=== PATIENT | male | born 1955 | race Caucasian/White ===

== ENCOUNTER 2018-07-16 05:34 | Observation (INO) | payer BC ==
[2018-07-16] MEDS ORDERED: Sodium Chloride 0.9% 2.5 ML Syringe FLUSH PRN (05:36)
[2018-07-16] MEDS ORDERED: Sodium Chloride 0.9% 10 ML Syringe FLUSH PRN (05:36)
[2018-07-16] MEDS ORDERED: Pantoprazole 40 MG Vial IVPUSH ONE (05:39)
[2018-07-16] MEDS ORDERED: Ondansetron 4 MG/2 ML SDV IVPUSH ONE (05:39)
[2018-07-16] MEDS ORDERED: Sodium Chloride 0.9% 1,000 ML IV ONE ×2 (05:39→09:04)
--- NOTE | 2018-07-16 05:56 | EDM.PDOC ---
ED HPI GENERAL MEDICAL PROBLEM - General Chief Complaint: Abdominal Pain Stated Complaint: ABDOMINAL PAIN Time Seen by Provider: 07/16/18 05:36 - History of Present Illness INITIAL COMMENTS - FREE TEXT/NARRATIVE: HISTORY AND PHYSICAL: History of present illness: The patient is a 62-year-old male who follows in our family practice clinic and presents with epigastric discomfort that he says radiates to his back and occasionally to his umbilicus area that started on Tuesday night, day and a half ago. He said he had a normal day on Tuesday and started having the discomfort which appeared to originate in the epigastrium and he did not sleep very well on Tuesday night. He says that he does take ibuprofen, 600 mg, occasionally at night since a foot surgery but is not taking anything more than that nor does he take it every evening. The patient does drink 4 cups of caffeinated coffee and 2 cups of decaf daily and denies alcohol use. The patient said that the pain started and has been gradually increasing and he now rates it as a burning- like pain in his epigastrium as a 7/10. He does not say that it radiate specifically to his chest and he does not feel short of breath. He has no chest pain per se or palpitations and no lower abdominal pain. He said no urinary complaints and has normal bowel movements and more recently he has not had black or bloody bowel movements nor any diarrhea. The patient said that he did not have any nausea until his morning and he did have one episode of vomiting that was yellowish and liquid in color and it was not black or bloody. He says that he doesn't usually eat spicy food and he has not noticed any association with foods making the pain better or worse. He has never had an endoscopy or GI workup and never had a cardiac workup. The patient does have a significant family history of a father who had a bypass at 54 and he says he takes a low dose aspirin daily because of that per his family practice provider. The patient doesn't feel bloated or gassy and he's had no abdominal surgical history. In an effort to help the pain the patient has taken multiple doses of [id number] Tums which he says initially do help him feel better but then his discomfort returns. His taken one dose of [id number] Pepcid and he has never had a GI workup nor has he been on any chronic medications for similar symptoms The patient and at bedside due to me that he has had many many years of pain near his xiphoid process which Dr. Oneil has evaluated and this discomfort he is experiencing today is different he denies any recent trauma Review of systems: As per history of present illness and below otherwise all systems reviewed and negative. Past medical history: As per history of present illness and as reviewed below otherwise noncontributory. Surgical history: As per history of present illness and as reviewed below otherwise noncontributory. Social history: No reported history of drug or alcohol abuse. Family history: As per history of present illness and as reviewed below otherwise noncontributory. Physical exam: General: Well-developed well-nourished man who is nontoxic and vital signs are noted by me. He moves easily in the ED and is in no apparent distress HEENT: Atraumatic, normocephalic, pupils reactive, negative for conjunctival pallor or scleral icterus, mucous membranes moist, throat clear, neck supple, nontender, trachea midline. Lungs: Clear to auscultation, breath sounds equal bilaterally, chest nontender. Heart: S1S2, regular, rate and rhythm no overt murmurs negative for clicks, rubs , or JVD. Abdomen: Soft, nondistended, mild epigastric tenderness on deep palpation which does not localize right or left and there is tympany on percussion of the upper abdomen without tenderness rebound or guarding. The abdomen is not distended and there is no periumbilical tenderness or lower abdominal tenderness on deep palpation and no rebound or guarding. Negative for masses or hepatosplenomegaly. Negative for costovertebral tenderness. Pelvis: Stable nontender. Genitourinary: Deferred. Rectal: Deferred. Extremities: Atraumatic, negative for cords or calf pain. Neurovascular unremarkable. No pedal edema or leg asymmetry Neuro: Awake, alert, oriented. Cranial nerves II through XII unremarkable. Cerebellum unremarkable. Motor and sensory unremarkable throughout. Exam nonfocal. Diagnostics: EKG H pylori CBC CMP troponin amylase lipase abdominal/chest x-ray Therapeutics: IV O2 monitor Protonix Zofran, GI cocktail, IV fluid bolus and maintenance, nothing by mouth status The patient says that his discomfort is improving and is now only a 4 out of 10. I discussed with him and at bedside all testing results and my concerns about his presentation and the vagueness of his symptoms with respect to that. Abnormalities we have determined. I discussed this case with Dr. Zeng our hospitalist at 7:55 AM and we have all agreed for an observation admission with telemetry. Impression: Epigastric abdominal pain, rule out early pancreatitis, rule out atypical chest pain Definitive disposition and diagnosis as appropriate pending reevaluation and review of above. Upper Abdomen Pain Score (Numeric/FACES): 7 - Related Data Allergies Allergy/AdvReac Type Severity Reaction Status Date / Time No Known Allergies Allergy Verified 07/16/18 05:41 Home Meds: Home Meds Aspirin 81 mg PO DAILY 07/16/18 [History] ED ROS GENERAL - Review of Systems Review Of Systems: ROS reveals no pertinent complaints other than HPI. ED EXAM, GENERAL - Physical Exam Exam: See Below (See dictation) Course - Vital Signs Last Recorded V/S: Last Vital Signs Temp 36.5 C 07/16/18 05:38 Pulse 71 07/16/18 07:36 Resp 17 07/16/18 07:36 BP 146/80 H 07/16/18 07:36 Pulse Ox 96 07/16/18 07:36 - Orders/Labs/Meds Orders: Active Orders 24 hr Category Date Time Status Patient Status [ADT] Stat ADT 07/16/18 07:55 Ordered Cardiac Monitoring [RC] . DIRECTED Care 07/16/18 05:36 Active EKG Documentation Completion [RC] STAT Care 07/16/18 05:36 Active Oxygen Therapy, ED [RC] ASDIRECTED Care 07/16/18 05:36 Active Pulse Oximetry [RC] ASDIRECTED Care 07/16/18 05:36 Active Sodium Chloride 0.9% [Normal Saline] 1,000 ml Med 07/16/18 08:00 Active IV ASDIRECTED Sodium Chloride 0.9% [Saline Flush] Med 07/16/18 05:36 Active 10 ml FLUSH ASDIRECTED PRN Sodium Chloride 0.9% [Saline Flush] Med 07/16/18 05:36 Active 2.5 ml FLUSH ASDIRECTED PRN Saline Lock Insert [OM.PC] Stat Oth 07/16/18 05:36 Ordered Medication Orders Sodium Chloride (Normal Saline) 1,000 mls @ 150 mls/hr IV ASDIRECTED CHLOE Sodium Chloride (Saline Flush) 10 ml FLUSH ASDIRECTED PRN PRN Reason: Keep Vein Open Sodium Chloride (Saline Flush) 2.5 ml FLUSH ASDIRECTED PRN PRN Reason: Keep Vein Open Labs: Laboratory Tests 07/16/18 07/16/18 07/16/18 Range/Units 05:45 05:45 05:45 WBC 14.07 H (4.0-11.0) K/uL RBC 4.71 (4.50-5.90) M/uL Hgb 14.4 (13.0-17.0) g/dL Hct 42.3 (38.0-50.0) % MCV 89.8 (80.0-98.0) fL MCH 30.6 (27.0-32.0) pg MCHC 34.0 (31.0-37.0) g/dL RDW Std Deviation 40.6 (28.0-62.0) fl RDW Coeff of Max 12 (11.0-15.0) % Plt Count 247 (150-400) K/uL MPV 9.90 (7.40-12.00) fL Neut % (Auto) 80.5 H (48.0-80.0) % Lymph % (Auto) 9.8 L (16.0-40.0) % Dubois % (Auto) 9.3 (0.0-15.0) % Eos % (Auto) 0.2 (0.0-7.0) % Baso % (Auto) 0.2 (0.0-1.5) % Neut # (Auto) 11.3 H (1.4-5.7) K/uL Lymph # (Auto) 1.4 (0.6-2.4) K/uL Dubois # (Auto) 1.3 H (0.0-0.8) K/uL Eos # (Auto) 0.0 (0.0-0.7) K/uL Baso # (Auto) 0.0 (0.0-0.1) K/uL Nucleated RBC % 0.0 /100WBC Nucleated RBCs # 0 K/uL Sodium 135 L (136-148) mmol/L Potassium 3.7 (3.5-5.1) mmol/L Chloride 101 (98-107) mmol/L Carbon Dioxide 24.5 (21.0-32.0) mmol/L BUN 16 (7.0-18.0) mg/dL Creatinine 0.8 (0.8-1.3) mg/dL Est Cr Clr Drug Dosing TNP Estimated GFR (MDRD) > 60.0 ml/min Glucose 151 H (74-106) mg/dL Calcium 8.9 (8.5-10.1) mg/dL Total Bilirubin 1.1 H (0.2-1.0) mg/dL AST 15 (15-37) IU/L ALT 31 (14-63) IU/L Alkaline Phosphatase 94 (46-116) U/L Troponin I (0.000-0.056) ng/mL Total Protein 7.4 (6.4-8.2) g/dL Albumin 3.7 (3.4-5.0) g/dL Globulin 3.7 (2.6-4.0) g/dL Albumin/Globulin Ratio 1.0 (0.9-1.6) Amylase 48 (25-115) U/L Lipase 260 (73-393) U/L Urine Color Urine Appearance Urine pH (5.0-8.0) Ur Specific [place] (1.001-1.035) Urine Protein (NEGATIVE) mg/dL Urine Glucose (UA) (NEGATIVE) mg/dL Urine Ketones (NEGATIVE) mg/dL Urine Occult Blood (NEGATIVE) Urine Nitrite (NEGATIVE) Urine Bilirubin (NEGATIVE) Urine Urobilinogen (<2.0) EU/dL Ur Leukocyte Esterase (NEGATIVE) H. pylori IgG Antibody NEGATIVE (NEG) 07/16/18 07/16/18 Range/Units 05:45 07:15 WBC (4.0-11.0) K/uL RBC (4.50-5.90) M/uL Hgb (13.0-17.0) g/dL Hct (38.0-50.0) % MCV (80.0-98.0) fL MCH (27.0-32.0) pg MCHC (31.0-37.0) g/dL RDW Std Deviation (28.0-62.0) fl RDW Coeff of Max (11.0-15.0) % Plt Count (150-400) K/uL MPV (7.40-12.00) fL Neut % (Auto) (48.0-80.0) % Lymph % (Auto) (16.0-40.0) % Dubois % (Auto) (0.0-15.0) % Eos % (Auto) (0.0-7.0) % Baso % (Auto) (0.0-1.5) % Neut # (Auto) (1.4-5.7) K/uL Lymph # (Auto) (0.6-2.4) K/uL Dubois # (Auto) (0.0-0.8) K/uL Eos # (Auto) (0.0-0.7) K/uL Baso # (Auto) (0.0-0.1) K/uL Nucleated RBC % /100WBC Nucleated RBCs # K/uL Sodium (136-148) mmol/L Potassium (3.5-5.1) mmol/L Chloride (98-107) mmol/L Carbon Dioxide (21.0-32.0) mmol/L BUN (7.0-18.0) mg/dL Creatinine (0.8-1.3) mg/dL Est Cr Clr Drug Dosing Estimated GFR (MDRD) ml/min Glucose (74-106) mg/dL Calcium (8.5-10.1) mg/dL Total Bilirubin (0.2-1.0) mg/dL AST (15-37) IU/L ALT (14-63) IU/L Alkaline Phosphatase (46-116) U/L Troponin I < 0.050 (0.000-0.056) ng/mL Total Protein (6.4-8.2) g/dL Albumin (3.4-5.0) g/dL Globulin (2.6-4.0) g/dL Albumin/Globulin Ratio (0.9-1.6) Amylase (25-115) U/L Lipase (73-393) U/L Urine Color YELLOW Urine Appearance CLEAR Urine pH 5.5 (5.0-8.0) Ur Specific [place] <= 1.005 (1.001-1.035) Urine Protein NEGATIVE (NEGATIVE) mg/dL Urine Glucose (UA) NEGATIVE (NEGATIVE) mg/dL Urine Ketones NEGATIVE (NEGATIVE) mg/dL Urine Occult Blood NEGATIVE (NEGATIVE) Urine Nitrite NEGATIVE (NEGATIVE) Urine Bilirubin NEGATIVE (NEGATIVE) Urine Urobilinogen 0.2 (<2.0) EU/dL Ur Leukocyte Esterase NEGATIVE (NEGATIVE) H. pylori IgG Antibody (NEG) Meds: Medications Generic Name Dose Route Start Last Admin Trade Name Myrna PRN Reason Stop Dose Admin Sodium Chloride 1,000 mls @ 150 mls/hr 07/16/18 08:00 Normal Saline IV ASDIRECTED CHLOE Sodium Chloride 10 ml 07/16/18 05:36 Saline Flush FLUSH ASDIRECTED PRN Keep Vein Open Sodium Chloride 2.5 ml 07/16/18 05:36 Saline Flush FLUSH ASDIRECTED PRN Keep Vein Open Discontinued Medications Generic Name Dose Route Start Last Admin Trade Name Freq PRN Reason Stop Dose Admin Al Hydroxide/Mg Hydroxide 15 0 ml 07/16/18 07:52 ml/ Metoclopramide HCl 5 mg/ PO 07/16/18 07:53 Lidocaine HCl 5 ml ONETIME ONE Sodium Chloride 1,000 mls @ 999 mls/hr 07/16/18 05:39 07/16/18 06:11 Normal Saline IV 07/16/18 06:39 999 mls/hr STAT ONE Administration Sodium Chloride Confirm 07/16/18 06:03 07/16/18 06:12 Normal Saline Administered 07/16/18 06:04 Not Given Dose 20 mls @ as directed .ROUTE .STK-MED ONE Iopamidol 100 ml 07/16/18 06:44 07/16/18 06:55 Isovue-370 (76%) IVPUSH 07/16/18 06:45 100 ml ONETIME ONE Administration Ondansetron HCl 4 mg 07/16/18 05:39 07/16/18 06:12 Zofran IVPUSH 07/16/18 05:40 4 mg ONETIME ONE Administration Pantoprazole Sodium 80 mg 07/16/18 05:39 07/16/18 06:12 Protonix Iv IVPUSH 07/16/18 05:40 80 mg .BOLUS ONE Administration Sodium Chloride 20 ml 07/16/18 06:04 07/16/18 06:11 Normal Saline FLUSH 07/16/18 06:05 20 ml NOW STA Administration Departure - Departure Time of Disposition: 07:57 Disposition: Refer to Observation Condition: Good Clinical Impression: Epigastric abdominal pain - Discharge Information Referrals: Galileo Oneil MD [Primary Care Provider] - Forms: ED Department Discharge - My Orders Last 24 Hours: My Active Orders 07/16/18 05:36 Cardiac Monitoring [RC] . DIRECTED EKG Documentation Completion [RC] STAT Oxygen Therapy, ED [RC] ASDIRECTED Pulse Oximetry [RC] ASDIRECTED Sodium Chloride 0.9% [Saline Flush] 10 ml FLUSH ASDIRECTED PRN Sodium Chloride 0.9% [Saline Flush] 2.5 ml FLUSH ASDIRECTED PRN Saline Lock Insert [OM.PC] Stat 07/16/18 07:55 Patient Status [ADT] Stat 07/16/18 08:00 Sodium Chloride 0.9% [Normal Saline] 1,000 ml IV ASDIRECTED - Assessment/Plan Last 24 Hours: My Active Orders 07/16/18 05:36 Cardiac Monitoring [RC] . DIRECTED EKG Documentation Completion [RC] STAT Oxygen Therapy, ED [RC] ASDIRECTED Pulse Oximetry [RC] ASDIRECTED Sodium Chloride 0.9% [Saline Flush] 10 ml FLUSH ASDIRECTED PRN Sodium Chloride 0.9% [Saline Flush] 2.5 ml FLUSH ASDIRECTED PRN Saline Lock Insert [OM.PC] Stat 07/16/18 07:55 Patient Status [ADT] Stat 07/16/18 08:00 Sodium Chloride 0.9% [Normal Saline] 1,000 ml IV ASDIRECTED
[2018-07-16] MEDS ORDERED: Sodium Chloride 0.9% 20 ML ONE (06:03)
[2018-07-16] MEDS ORDERED: Sodium Chloride 0.9% 20 ML SDV FLUSH STA (06:04)
[2018-07-16 06:20] LABS: CHLORIDE,CL 101 mmol/L (98-107); SODIUM,NA 135 mmol/L (136-148)
[2018-07-16] MEDS ORDERED: Iopamidol 755 Mg/ML 100 ML Bottle IVPUSH ONE (06:44)
--- NOTE | 2018-07-16 06:49 | CR ---
INDICATION: Epigastric pain TECHNIQUE: Chest and Abdominal radiograph 4 views COMPARISON: 02/15/2018 FINDINGS: CHEST: Mediastinum: The mediastinum is normal in appearance. The heart silhouette is normal in size and morphology. Lung: Trace linear scarring in the left lung base is noted without change. No sign of pleural effusion seen. No pneumothorax is identified. ABDOMEN: Bowel: Mild gaseous distention of the transverse colon is seen. There is hyperdense segment of small bowel in the right lower quadrant which may be due to oral contrast. Soft tissue: No evidence of pneumoperitoneum present. Numerous pelvic phleboliths are present bilaterally. Bone: Unremarkable for age. IMPRESSION: 1. Unremarkable appearance of the chest and abdomen. Dictated by Zach Guillermo MD @ 07/16/2018 6:48:22 AM Dictated by: Zach Guillermo MD @ 07/16/2018 06:48:24 (Electronically Signed)
--- NOTE | 2018-07-16 07:24 | CT ---
INDICATION: Epigastric abdominal pain. TECHNIQUE: CT scan of the abdomen and pelvis with 100 cc of Isovue-370 given intravenously. FINDINGS: The lung bases and are unremarkable. A few very small low attenuation lesions in the liver may represent cysts but are too small to adequately characterize. No other focal abnormalities identified in the visualized portions of the liver, spleen, and adrenal glands, and kidneys. No hydronephrosis. No obstructing uroliths. Trace amount of edema around the lower portion of the head of the pancreas. The remainder of the pancreas is unremarkable. No bile duct dilation. The GI tract is incompletely distended but shows no gross abnormalities. The stomach and GE junction are not well assessed. Normal appendix. No retroperitoneal, pelvic sidewall, or mesenteric adenopathy. Mild atherosclerotic vascular calcifications. IMPRESSION: 1. Trace amount of edema around the lower portion of the head of the pancreas may represent a mild acute pancreatitis. Dictated by Colin Mandujano MD @ 07/16/2018 7:23:34 AM Please note that all CT scans at this facility use dose modulation, iterative reconstruction, and/or weight-based dosing when appropriate to reduce radiation dose to as low as reasonably achievable. Dictated by: Colin Mandujano MD @ 07/16/2018 07:23:42 (Electronically Signed)
[2018-07-16] MEDS ORDERED: Alum Hydrox/Mag Hydrox/Simeth 15 ML, Metoclopramide 5 MG, Lidocaine 2% 5 ML PO ONE ×3 (07:52)
[2018-07-16] MEDS: Sodium Chloride 0.9% 1,000 ML IV SCH ×3 (08:00→19:31)
[2018-07-16] MEDS ORDERED: Ondansetron 4 MG/2 ML SDV IVPUSH PRN (09:01)
[2018-07-16] MEDS ORDERED: Morphine 2 MG/ML Syringe IVPUSH PRN (09:01)
--- NOTE | 2018-07-16 13:57 | US ---
INDICATION: Pancreatitis. Follow-up from earlier CT study. TECHNIQUE: Ultrasound abdomen limited. Sonographic images of the right upper quadrant were obtained using cross-scale and color Doppler images. COMPARISON: CT study earlier on 07/16/2018. FINDINGS: Liver: Normal in size and echotexture. No masses. No intrahepatic biliary dilatation. Gallbladder: No stones or sludge. Normal wall thickness. No pericholecystic fluid. Common bile duct: 4-5 mm. Pancreas: Pancreas somewhat obscured due to overlying bowel gas and patient body habitus. No definite peripancreatic fluid identified. Right kidney: Length 12.4 cm. Normal echotexture and cortex. No masses, stones, or hydronephrosis. Vasculature: Abdominal aorta, IVC, and portal vein not evaluated. IMPRESSION: 1. Negative right upper quadrant abdominal ultrasound. 2. Pancreas visualization limited on this study. Patient has history of acute pancreatitis with somewhat edematous appearance to the pancreatic head on earlier CT dated 07/16/2018. Dictated by Sherman Hooks MD @ 07/16/2018 1:56:01 PM Dictated by: Sherman Hooks MD @ 07/16/2018 13:56:11 (Electronically Signed)
--- NOTE | 2018-07-16 17:14 | PCM.HP ---
H&P History of Present Illness - General Admit Problem/Dx: Admission Diagnosis/Problem Admission Diagnosis/Problem Abdominal pain - History of Present Illness Initial Comments - Free Text/Narative: 62 yo male who presents with three day history of abdominal pain. The pain is periumbilical and radiates to the back. After eating last night the pain got much worse. He presented to ED and found to have a leukocytosis of 14,070, lipase of [address] scan of the abdomen reporting trace amount of edema around the lower head of the pancreas. He reports drinking one or two drinks a week. Upper Abdomen Pain Score (Numeric/FACES): 7 - Related Data Allergies/Adverse Reactions: Allergies Allergy/AdvReac Type Severity Reaction Status Date / Time No Known Allergies Allergy Verified 07/16/18 05:41 Home Medications: Home Meds Aspirin 81 mg PO DAILY 07/16/18 [History] Past Medical History HEENT History: Reports: None Cardiovascular History: Reports: None Respiratory History: Reports: None Gastrointestinal History: Reports: None Genitourinary History: Reports: None Neurological History: Reports: None Psychiatric History: Reports: None Endocrine/Metabolic History: Reports: None Hematologic History: Reports: None Immunologic History: Reports: None Oncologic (Cancer) History: Reports: None Dermatologic History: Reports: None - Infectious Disease History Infectious Disease History: Reports: None - Past Surgical History Other Musculoskeletal Surgeries/Procedures:: R hammer toe sx Social & Family History - Tobacco Use Smoking Status *Q: Never Smoker Second Hand Smoke Exposure: No - Caffeine Use Caffeine Use: Reports: Coffee, Soda - Alcohol Use Days Per Week of Alcohol Use: 2 Number of Drinks Per Day: 2 Total Drinks Per Week: 4 Date of Last Drink: 07/14/18 - Recreational Drug Use Recreational Drug Use: No H&P Review of Systems - Review of Systems: Review Of Systems: ROS reveals no pertinent complaints other than HPI. Exam - Vital Signs Vital Signs: Last Vital Signs Temp 37.4 C 07/16/18 13:01 Pulse 78 07/16/18 13:01 Resp 16 07/16/18 13:01 BP 135/71 07/16/18 13:01 Pulse Ox 97 07/16/18 13:01 Weight: 88.621 kg - Exam General: Alert, Oriented HEENT: Mucosa Moist & [place] Neck: Supple Lungs: Clear to Auscultation, Normal Respiratory Effort Cardiovascular: Regular Rate, Regular Rhythm GI/Abdominal Exam: Normal Bowel Sounds, Soft, Non-Tender Extremities: Non-Tender, No Pedal Edema Skin: Warm, Dry, Intact - Patient Data Lab Results Last 24 hrs: Laboratory Results - last 24 hr 07/16/18 07/16/18 07/16/18 Range/Units 05:45 05:45 05:45 WBC 14.07 H (4.0-11.0) K/uL RBC 4.71 (4.50-5.90) M/uL Hgb 14.4 (13.0-17.0) g/dL Hct 42.3 (38.0-50.0) % MCV 89.8 (80.0-98.0) fL MCH 30.6 (27.0-32.0) pg MCHC 34.0 (31.0-37.0) g/dL RDW Std Deviation 40.6 (28.0-62.0) fl RDW Coeff of Max 12 (11.0-15.0) % Plt Count 247 (150-400) K/uL MPV 9.90 (7.40-12.00) fL Neut % (Auto) 80.5 H (48.0-80.0) % Lymph % (Auto) 9.8 L (16.0-40.0) % Story % (Auto) 9.3 (0.0-15.0) % Eos % (Auto) 0.2 (0.0-7.0) % Baso % (Auto) 0.2 (0.0-1.5) % Neut # (Auto) 11.3 H (1.4-5.7) K/uL Lymph # (Auto) 1.4 (0.6-2.4) K/uL Story # (Auto) 1.3 H (0.0-0.8) K/uL Eos # (Auto) 0.0 (0.0-0.7) K/uL Baso # (Auto) 0.0 (0.0-0.1) K/uL Nucleated RBC % 0.0 /100WBC Nucleated RBCs # 0 K/uL Sodium 135 L (136-148) mmol/L Potassium 3.7 (3.5-5.1) mmol/L Chloride 101 (98-107) mmol/L Carbon Dioxide 24.5 (21.0-32.0) mmol/L BUN 16 (7.0-18.0) mg/dL Creatinine 0.8 (0.8-1.3) mg/dL Est Cr Clr Drug Dosing TNP Estimated GFR (MDRD) > 60.0 ml/min Glucose 151 H (74-106) mg/dL Calcium 8.9 (8.5-10.1) mg/dL Total Bilirubin 1.1 H (0.2-1.0) mg/dL AST 15 (15-37) IU/L ALT 31 (14-63) IU/L Alkaline Phosphatase 94 (46-116) U/L Troponin I (0.000-0.056) ng/mL Total Protein 7.4 (6.4-8.2) g/dL Albumin 3.7 (3.4-5.0) g/dL Globulin 3.7 (2.6-4.0) g/dL Albumin/Globulin Ratio 1.0 (0.9-1.6) Triglycerides (0-200) mg/dL Cholesterol (50-200) mg/dL LDL Cholesterol, Calc (60-180) mg/dL VLDL Cholesterol (5-55) mg/dL HDL Cholesterol (40-60) mg/dL Cholesterol/HDL Ratio (3.3-6.0) Amylase 48 (25-115) U/L Lipase 260 (73-393) U/L Urine Color Urine Appearance Urine pH (5.0-8.0) Ur Specific [place] (1.001-1.035) Urine Protein (NEGATIVE) mg/dL Urine Glucose (UA) (NEGATIVE) mg/dL Urine Ketones (NEGATIVE) mg/dL Urine Occult Blood (NEGATIVE) Urine Nitrite (NEGATIVE) Urine Bilirubin (NEGATIVE) Urine Urobilinogen (<2.0) EU/dL Ur Leukocyte Esterase (NEGATIVE) H. pylori IgG Antibody NEGATIVE (NEG) 07/16/18 07/16/18 07/16/18 Range/Units 05:45 05:45 07:15 WBC (4.0-11.0) K/uL RBC (4.50-5.90) M/uL Hgb (13.0-17.0) g/dL Hct (38.0-50.0) % MCV (80.0-98.0) fL MCH (27.0-32.0) pg MCHC (31.0-37.0) g/dL RDW Std Deviation (28.0-62.0) fl RDW Coeff of Max (11.0-15.0) % Plt Count (150-400) K/uL MPV (7.40-12.00) fL Neut % (Auto) (48.0-80.0) % Lymph % (Auto) (16.0-40.0) % Story % (Auto) (0.0-15.0) % Eos % (Auto) (0.0-7.0) % Baso % (Auto) (0.0-1.5) % Neut # (Auto) (1.4-5.7) K/uL Lymph # (Auto) (0.6-2.4) K/uL Story # (Auto) (0.0-0.8) K/uL Eos # (Auto) (0.0-0.7) K/uL Baso # (Auto) (0.0-0.1) K/uL Nucleated RBC % /100WBC Nucleated RBCs # K/uL Sodium (136-148) mmol/L Potassium (3.5-5.1) mmol/L Chloride (98-107) mmol/L Carbon Dioxide (21.0-32.0) mmol/L BUN (7.0-18.0) mg/dL Creatinine (0.8-1.3) mg/dL Est Cr Clr Drug Dosing Estimated GFR (MDRD) ml/min Glucose (74-106) mg/dL Calcium (8.5-10.1) mg/dL Total Bilirubin (0.2-1.0) mg/dL AST (15-37) IU/L ALT (14-63) IU/L Alkaline Phosphatase (46-116) U/L Troponin I < 0.050 (0.000-0.056) ng/mL Total Protein (6.4-8.2) g/dL Albumin (3.4-5.0) g/dL Globulin (2.6-4.0) g/dL Albumin/Globulin Ratio (0.9-1.6) Triglycerides 46 (0-200) mg/dL Cholesterol 208 H (50-200) mg/dL LDL Cholesterol, Calc 135 (60-180) mg/dL VLDL Cholesterol 9 (5-55) mg/dL HDL Cholesterol 64 H (40-60) mg/dL Cholesterol/HDL Ratio 3.3 (3.3-6.0) Amylase (25-115) U/L Lipase (73-393) U/L Urine Color YELLOW Urine Appearance CLEAR Urine pH 5.5 (5.0-8.0) Ur Specific [place] <= 1.005 (1.001-1.035) Urine Protein NEGATIVE (NEGATIVE) mg/dL Urine Glucose (UA) NEGATIVE (NEGATIVE) mg/dL Urine Ketones NEGATIVE (NEGATIVE) mg/dL Urine Occult Blood NEGATIVE (NEGATIVE) Urine Nitrite NEGATIVE (NEGATIVE) Urine Bilirubin NEGATIVE (NEGATIVE) Urine Urobilinogen 0.2 (<2.0) EU/dL Ur Leukocyte Esterase NEGATIVE (NEGATIVE) H. pylori IgG Antibody (NEG) 07/16/18 Range/Units 11:44 WBC (4.0-11.0) K/uL RBC (4.50-5.90) M/uL Hgb (13.0-17.0) g/dL Hct (38.0-50.0) % MCV (80.0-98.0) fL MCH (27.0-32.0) pg MCHC (31.0-37.0) g/dL RDW Std Deviation (28.0-62.0) fl RDW Coeff of Max (11.0-15.0) % Plt Count (150-400) K/uL MPV (7.40-12.00) fL Neut % (Auto) (48.0-80.0) % Lymph % (Auto) (16.0-40.0) % Story % (Auto) (0.0-15.0) % Eos % (Auto) (0.0-7.0) % Baso % (Auto) (0.0-1.5) % Neut # (Auto) (1.4-5.7) K/uL Lymph # (Auto) (0.6-2.4) K/uL Story # (Auto) (0.0-0.8) K/uL Eos # (Auto) (0.0-0.7) K/uL Baso # (Auto) (0.0-0.1) K/uL Nucleated RBC % /100WBC Nucleated RBCs # K/uL Sodium (136-148) mmol/L Potassium (3.5-5.1) mmol/L Chloride (98-107) mmol/L Carbon Dioxide (21.0-32.0) mmol/L BUN (7.0-18.0) mg/dL Creatinine (0.8-1.3) mg/dL Est Cr Clr Drug Dosing Estimated GFR (MDRD) ml/min Glucose (74-106) mg/dL Calcium (8.5-10.1) mg/dL Total Bilirubin (0.2-1.0) mg/dL AST (15-37) IU/L ALT (14-63) IU/L Alkaline Phosphatase (46-116) U/L Troponin I < 0.050 (0.000-0.056) ng/mL Total Protein (6.4-8.2) g/dL Albumin (3.4-5.0) g/dL Globulin (2.6-4.0) g/dL Albumin/Globulin Ratio (0.9-1.6) Triglycerides (0-200) mg/dL Cholesterol (50-200) mg/dL LDL Cholesterol, Calc (60-180) mg/dL VLDL Cholesterol (5-55) mg/dL HDL Cholesterol (40-60) mg/dL Cholesterol/HDL Ratio (3.3-6.0) Amylase (25-115) U/L Lipase (73-393) U/L Urine Color Urine Appearance Urine pH (5.0-8.0) Ur Specific [place] (1.001-1.035) Urine Protein (NEGATIVE) mg/dL Urine Glucose (UA) (NEGATIVE) mg/dL Urine Ketones (NEGATIVE) mg/dL Urine Occult Blood (NEGATIVE) Urine Nitrite (NEGATIVE) Urine Bilirubin (NEGATIVE) Urine Urobilinogen (<2.0) EU/dL Ur Leukocyte Esterase (NEGATIVE) H. pylori IgG Antibody (NEG) Result Diagrams: 07/16/18 05:45 07/16/18 05:45 Problem List Initiated/Reviewed/Updated: Yes Orders Last 24hrs: Active Orders 24 hr Category Date Time Status Patient Status [ADT] Stat ADT 07/16/18 07:55 Active Antiembolic Devices [RC] PER UNIT ROUTINE Care 07/16/18 09:02 Active Cardiac Monitoring [RC] Q8HR Care 07/16/18 05:36 Active EKG Documentation Completion [RC] STAT Care 07/16/18 05:36 Active Oxygen Therapy [RC] PRN Care 07/16/18 09:01 Active Pulse Oximetry [RC] ASDIRECTED Care 07/16/18 05:36 Active Up ad [place] [RC] ASDIRECTED Care 07/16/18 09:01 Active VTE/DVT Education [RC] PER UNIT ROUTINE Care 07/16/18 09:01 Active Vital Signs [RC] Q4H Care 07/16/18 09:01 Active Nothing per Oral Now Diet [DIET] Diet 07/16/18 Breakfast Active CBC WITH AUTO DIFF [HEME] AM Lab 07/17/18 05:11 Ordered COMPREHENSIVE METABOLIC PN,CMP [CHEM] AM Lab 07/17/18 05:11 Ordered LIPASE [CHEM] AM Lab 07/17/18 05:11 Ordered TROPONIN I [CHEM] Routine Lab 07/16/18 17:45 Ordered Morphine Med 07/16/18 09:01 Active 2 mg IVPUSH Q2H PRN Ondansetron [Zofran] Med 07/16/18 09:01 Active 4 mg IVPUSH Q4H PRN Sodium Chloride 0.9% [Normal Saline] 1,000 ml Med 07/16/18 08:00 Active IV ASDIRECTED Sodium Chloride 0.9% [Saline Flush] Med 07/16/18 05:36 Active 10 ml FLUSH ASDIRECTED PRN Sodium Chloride 0.9% [Saline Flush] Med 07/16/18 05:36 Active 2.5 ml FLUSH ASDIRECTED PRN Saline Lock Insert [OM.PC] Stat Oth 07/16/18 05:36 Ordered Sequential Compression Device [OM.PC] Per Unit Routine Oth 07/16/18 09:02 Ordered Resuscitation Status Routine Resus Stat 07/16/18 09:01 Ordered Medication Orders Sodium Chloride (Normal Saline) 1,000 mls @ 200 mls/hr IV ASDIRECTED CHLOE Last Admin: 07/16/18 14:33 Dose: 200 mls/hr Infusion: 07/16/18 14:33 Dose: 200 mls/hr Admin: 07/16/18 08:00 Dose: 150 mls/hr Morphine Sulfate (Morphine) 2 mg IVPUSH Q2H PRN PRN Reason: Pain (severe 7-10) Stop: 07/17/18 09:02 Ondansetron HCl (Zofran) 4 mg IVPUSH Q4H PRN PRN Reason: Nausea Sodium Chloride (Saline Flush) 10 ml FLUSH ASDIRECTED PRN PRN Reason: Keep Vein Open Last Admin: 07/16/18 08:01 Dose: 10 ml Sodium Chloride (Saline Flush) 2.5 ml FLUSH ASDIRECTED PRN PRN Reason: Keep Vein Open Last Admin: 07/16/18 08:01 Dose: 2.5 ml Assessment/Plan Comment:: 62 yo male admitted for acute pancreatitis. Ultrasound did not show any gallstones or biliary obstruction. We will treat with bowel rest, IV fluids, and prn morphine.
[2018-07-17] MEDS: Sodium Chloride 0.9% 1,000 ML IV SCH ×2 (00:15→05:10)
[2018-07-17 06:16] LABS: CHLORIDE,CL 107 mmol/L (98-107); SODIUM,NA 140 mmol/L (136-148)
--- NOTE | 2018-07-17 16:26 | PCM.DCSUM1 ---
Discharge Summary - Hospital Course Free Text/Narrative:: Admission date: 07/16/18 Discharge date: 07/17/18 Admission diagnosis: 1. Acute pancreatitis Discharge diagnosis: 1. Acute pancreatitis, improved Hospital course: Gerardo Waller is a 62 y/o male who presented to the ED complaining of abdominal pain with radiation to his back. He was admitted for acute pancreatitis. CT abdomen showed some pancreatic inflammation. Abdominal ultrasound was negative for any gallstones. Overnight his pain was controlled and he remained afebrile. He was NPO overnight. His abdominal pain improved and his diet was advanced which he tolerated without vomiting or worsening abdominal pain. He was instructed to discontinue ibuprofen for now. His lipid panel did not show any hypertriglyceridemia. He was instructed to take pantoprazole 40 mg PO daily which he stated he would get over the counter. In addition, he will need to follow-up with general surgery, Dr. Pérez for Upper and lower endoscopies. - Discharge Data Discharge Date: 07/17/18 Discharge Disposition: Home, Self-Care 01 Condition: Stable - Patient Instructions Diet: Regular Diet as Tolerated Activity: As Tolerated Notify Provider of: Fever, Increased Pain, Nausea and/or Vomiting - Discharge Plan *PRESCRIPTION DRUG MONITORING PROGRAM REVIEWED*: Not Applicable *COPY OF PRESCRIPTION DRUG MONITORING REPORT IN PATIENT AMARI: Not Applicable Home Medications: Home Meds Aspirin 81 mg PO DAILY 07/16/18 [History] Patient Handouts: Acute Pancreatitis, [id number], Abdominal Pain, Adult, Easy -to-Read Referrals: [facility] [Outside] Galileo Oneil MD [Primary Care Provider] - 08/03/18 2:45 pm Alaina Pérez MD [Physician] - 08/11/18 9:00 am - Discharge Summary/Plan Comment DC Time >30 min.: No - Patient Data Vitals - Most Recent: Last Vital Signs Temp 36.6 C 07/17/18 11:42 Pulse 67 07/17/18 11:42 Resp 16 07/17/18 11:42 BP 135/77 07/17/18 11:42 Pulse Ox 96 07/17/18 11:42 Weight - Most Recent: 88.621 kg I&O - Last 24 hours: Intake & Output 07/17/18 07/17/18 07/17/18 06:59 14:59 22:59 Intake Total 2675 Output Total 9800 Balance 425 Lab Results - Last 24 hrs: Laboratory Results - last 24 hr 07/16/18 07/17/18 07/17/18 Range/Units 18:36 05:35 05:35 WBC 9.87 (4.0-11.0) K/uL RBC 4.30 L (4.50-5.90) M/uL Hgb 12.9 L (13.0-17.0) g/dL Hct 39.4 (38.0-50.0) % MCV 91.6 (80.0-98.0) fL MCH 30.0 (27.0-32.0) pg MCHC 32.7 (31.0-37.0) g/dL RDW Std Deviation 42.4 (28.0-62.0) fl RDW Coeff of Max 13 (11.0-15.0) % Plt Count 224 (150-400) K/uL MPV 10.10 (7.40-12.00) fL Neut % (Auto) 67.3 (48.0-80.0) % Lymph % (Auto) 18.9 (16.0-40.0) % Jones % (Auto) 11.3 (0.0-15.0) % Eos % (Auto) 2.1 (0.0-7.0) % Baso % (Auto) 0.4 (0.0-1.5) % Neut # (Auto) 6.6 H (1.4-5.7) K/uL Lymph # (Auto) 1.9 (0.6-2.4) K/uL Jones # (Auto) 1.1 H (0.0-0.8) K/uL Eos # (Auto) 0.2 (0.0-0.7) K/uL Baso # (Auto) 0.0 (0.0-0.1) K/uL Nucleated RBC % 0.0 /100WBC Nucleated RBCs # 0 K/uL Sodium 140 (136-148) mmol/L Potassium 3.8 (3.5-5.1) mmol/L Chloride 107 (98-107) mmol/L Carbon Dioxide 24.1 (21.0-32.0) mmol/L BUN 10 (7.0-18.0) mg/dL Creatinine 0.7 L (0.8-1.3) mg/dL Est Cr Clr Drug Dosing 112.22 mL/min Estimated GFR (MDRD) > 60.0 ml/min Glucose 100 (74-106) mg/dL Calcium 8.3 L (8.5-10.1) mg/dL Total Bilirubin 1.1 H (0.2-1.0) mg/dL AST 12 L (15-37) IU/L ALT 22 (14-63) IU/L Alkaline Phosphatase 70 (46-116) U/L Troponin I < 0.050 (0.000-0.056) ng/mL Total Protein 6.3 L (6.4-8.2) g/dL Albumin 3.0 L (3.4-5.0) g/dL Globulin 3.3 (2.6-4.0) g/dL Albumin/Globulin Ratio 0.9 (0.9-1.6) Lipase 156 (73-393) U/L Med Orders - Current: Current Medications Sodium Chloride (Normal Saline) 1,000 mls @ 200 mls/hr IV ASDIRECTED CHLOE Last Admin: 07/17/18 05:10 Dose: 200 mls/hr Ondansetron HCl (Zofran) 4 mg IVPUSH Q4H PRN PRN Reason: Nausea Sodium Chloride (Saline Flush) 10 ml FLUSH ASDIRECTED PRN PRN Reason: Keep Vein Open Last Admin: 07/16/18 08:01 Dose: 10 ml Sodium Chloride (Saline Flush) 2.5 ml FLUSH ASDIRECTED PRN PRN Reason: Keep Vein Open Last Admin: 07/16/18 08:01 Dose: 2.5 ml Discontinued Medications Al Hydroxide/Mg Hydroxide 15 ml/ Metoclopramide HCl 5 mg/Lidocaine HCl 5 ml 0 ml PO ONETIME ONE Stop: 07/16/18 07:53 Last Admin: 07/16/18 08:01 Dose: 1 each Sodium Chloride (Normal Saline) 1,000 mls @ 999 mls/hr IV STAT ONE Stop: 07/16/18 06:39 Last Admin: 07/16/18 06:11 Dose: 999 mls/hr Sodium Chloride (Normal Saline) Confirm Administered Dose 20 mls @ as directed .ROUTE .STK-MED ONE Stop: 07/16/18 06:04 Last Admin: 07/16/18 06:12 Dose: Not Given Sodium Chloride (Normal Saline) 1,000 mls @ 999 mls/hr IV .Bolus ONE Stop: 07/16/18 10:04 Last Admin: 07/16/18 09:30 Dose: 999 mls/hr Iopamidol (Isovue-370 (76%)) 100 ml IVPUSH ONETIME ONE Stop: 07/16/18 06:45 Last Admin: 07/16/18 06:55 Dose: 100 ml Morphine Sulfate (Morphine) 2 mg IVPUSH Q2H PRN PRN Reason: Pain (severe 7-10) Stop: 07/17/18 09:02 Ondansetron HCl (Zofran) 4 mg IVPUSH ONETIME ONE Stop: 07/16/18 05:40 Last Admin: 07/16/18 06:12 Dose: 4 mg Pantoprazole Sodium (Protonix Iv) 80 mg IVPUSH .BOLUS ONE Stop: 07/16/18 05:40 Last Admin: 07/16/18 06:12 Dose: 80 mg Sodium Chloride (Normal Saline) 20 ml FLUSH NOW STA Stop: 07/16/18 06:05 Last Admin: 07/16/18 06:11 Dose: 20 ml
== END 2018-07-17 16:20 | disposition home or self-care (01) ==
LOC: MW.ED 05:34 → MW.MS 08:08
PROVIDERS: ADMIT Internal Medicine; ATTEND Internal Medicine
DX: K85.90 Acute pancreatitis without necrosis or infection, unspecified (principal); Z79.82 Long term (current) use of aspirin; Z98.890 Other specified postprocedural states
CPT/HCPCS: 36415; 74022; 74177; 76705; 80053; 80061; 81003; 82150; 83690; 84484; 85025; 86677; 93005; 96361; 96374; 96375; 99285; A9270; C9113; G0378; J2405; J7040; Q9967; 99284

== ENCOUNTER 2019-02-05 11:09 | Day surgery (SDC) | payer BC ==
[~2019-02-05 11:09] MED LIST: Lactated Ringers 1,000 ML IV SCH; Lidocaine 2% 5 ML SDV ONE; Propofol 200 MG/20 ML SDV ONE; Sodium Chloride 0.9% 10 ML SDV IV PRN; Sodium Chloride 0.9% 10 ML Syringe FLUSH PRN; Sodium Chloride 0.9% 2.5 ML Syringe FLUSH PRN; fentaNYL 100 MCG/2 ML SDV ONE
--- NOTE | 2019-02-05 11:57 | PCM.PREANE ---
Preanesthetic Assessment - Anesthesia/Transfusion/Family Hx Anesthesia History: Prior Anesthesia Without Reaction Family History of Anesthesia Reaction: No Transfusion History: No Prior Transfusion(s) Intubation History: Unknown - Review of Systems General: No Symptoms Pulmonary: No Symptoms Cardiovascular: No Symptoms Gastrointestinal: No Symptoms, Other (10 year screening) Neurological: No Symptoms Other: Reports: None - Physical Assessment NPO Status Date: 02/05/19 NPO Status Time: 08:30 Vital Signs: Last Vital Signs Temp 36.5 C 02/05/19 11:15 Pulse 65 02/05/19 11:15 Resp 18 02/05/19 11:15 BP 151/81 H 02/05/19 11:15 Pulse Ox 99 02/05/19 11:15 Height: 5 ft 9 in Weight: 89.811 kg Mental Status: Alert & Oriented x3 Airway Class: Mallampati = 1 Dentition: Reports: Normal Dentition Thyro-Mental Finger Breadths: 3 Mouth Opening Finger Breadths: 3 ROM/Head Extension: Full Lungs: Clear to Auscultation, Normal Respiratory Effort Cardiovascular: Regular Rate, Regular Rhythm - Allergies Allergies/Adverse Reactions: Allergies Allergy/AdvReac Type Severity Reaction Status Date / Time No Known Allergies Allergy Verified 02/01/19 10:55 - Blood Blood Available: No - Anesthesia Plan Pre-Op Medication Ordered: None - Acknowledgements Anesthesia Type Planned: MAC Pt an Appropriate Candidate for the Planned Anesthesia: Yes Alternatives and Risks of Anesthesia Discussed w Pt/Guardian: Yes Pt/Guardian Understands and Agrees with Anesthesia Plan: Yes PreAnesthesia Questionnaire HEENT History: Reports: None Cardiovascular History: Reports: None Respiratory History: Reports: None Gastrointestinal History: Reports: Pancreatitis Other Gastrointestinal History: hx of pancreatitis last July Genitourinary History: Reports: Renal Calculus Other Genitourinary History: passed stone 7-8 years ago Musculoskeletal History: Reports: Fracture Other Musculoskeletal History: hx of "cracked" heel Neurological History: Reports: None Psychiatric History: Reports: None Endocrine/Metabolic History: Reports: None Hematologic History: Reports: None Immunologic History: Reports: None Oncologic (Cancer) History: Reports: None Dermatologic History: Reports: None - Infectious Disease History Infectious Disease History: Reports: None - Past Surgical History Head Surgeries/Procedures: Reports: None GI Surgical History: Reports: Colonoscopy (10 years ago- normal) Musculoskeletal Surgical History: Reports: ORIF Other Musculoskeletal Surgeries/Procedures:: right foot- bunionectomy and implants to toes (7 screws total and implants) - SUBSTANCE USE Smoking Status *Q: Never Smoker Recreational Drug Use History: No - HOME MEDS Home Medications: Home Meds Aspirin 81 mg PO DAILY 07/16/18 [History] - CURRENT (IN HOUSE) MEDS Current Meds: Current Medications Lactated Ringer's (Ringers, Lactated) 1,000 mls @ 125 mls/hr IV ASDIRECTED CHLOE Sodium Chloride (Saline Flush) 10 ml FLUSH ASDIRECTED PRN PRN Reason: Keep Vein Open Sodium Chloride (Saline Flush) 2.5 ml FLUSH ASDIRECTED PRN PRN Reason: Keep Vein Open Sodium Chloride (Saline Flush) 10 ml FLUSH ASDIRECTED PRN PRN Reason: Keep Vein Open Sodium Chloride (Saline Flush) 2.5 ml FLUSH ASDIRECTED PRN PRN Reason: Keep Vein Open Sodium Chloride (Normal Saline) 10 ml IV ASDIRECTED PRN PRN Reason: IV Use Discontinued Medications Fentanyl (Sublimaze) Confirm Administered Dose 100 mcg .ROUTE .STK-MED ONE Stop: 02/05/19 08:41 Lidocaine (Xylocaine-Mpf 2%) Confirm Administered Dose 5 ml .ROUTE .STK-MED ONE Stop: 02/05/19 08:41 Propofol (Diprivan 20 Ml) Confirm Administered Dose 400 mg .ROUTE .STK-MED ONE Stop: 02/05/19 08:41
--- NOTE | 2019-02-05 13:48 | PCM.POSTAN ---
POST ANESTHESIA ASSESSMENT - MENTAL STATUS Mental Status: Alert, Oriented - VITAL SIGNS Vital Signs: Last Vital Signs Temp 36.4 C 02/05/19 13:31 Pulse 64 02/05/19 13:31 Resp 16 02/05/19 13:31 BP 106/60 02/05/19 13:31 Pulse Ox 99 02/05/19 13:31 - RESPIRATORY Respiratory Status: Respiratory Rate WNL, Airway Patent, O2 Saturation Stable - CARDIOVASCULAR CV Status: Pulse Rate WNL, Blood Pressure Stable - GASTROINTESTINAL GI Status: No Symptoms - PAIN Pain Score: 0 - POST OP HYDRATION Hydration Status: Adequate & Stable - OBSERVATIONS Free Text/Narrative:: No anesthesia problems
--- NOTE | 2019-02-05 13:49 | PCM48HPAN ---
Post Anesthesia Note - EVALUATION WITHIN 48HRS OF ANESTHETIC Vital Signs in Normal Range: Yes Patient Participated in Evaluation: Yes Respiratory Function Stable: Yes Airway Patent: Yes Cardiovascular Function Stable: Yes Hydration Status Stable: Yes Pain Control Satisfactory: Yes Nausea and Vomiting Control Satisfactory: Yes Mental Status Recovered: Yes Vital Signs: Last Vital Signs Temp 36.4 C 02/05/19 13:31 Pulse 64 02/05/19 13:31 Resp 16 02/05/19 13:31 BP 106/60 02/05/19 13:31 Pulse Ox 99 02/05/19 13:31 - COMMENTS/OBSERVATIONS Free Text/Narrative:: No anesthesia problems
--- NOTE | 2019-02-05 14:51 | PCM.OPNOTE ---
- General Post-Op/Procedure Note Date of Surgery/Procedure: 02/05/19 Operative Procedure(s): Diagnostic colonoscopy Findings: Sigmoid diverticulosis Pre Op Diagnosis: Change in bowel habits Post-Op Diagnosis: Sigmoid diverticulosis Anesthesia Technique: MAK Primary Surgeon: Alaina Pérez Condition: Good Free Text/Narrative:: Intake & Output 02/04/19 02/05/19 02/05/19 22:59 06:59 14:59 Intake Total 800 Balance 800
--- NOTE | 2019-02-06 12:21 | OR ---
SURGEON: ALAINA PÉREZ MD DATE OF PROCEDURE: 02/05/2019 PREOPERATIVE DIAGNOSIS: Change in bowel habits. POSTOPERATIVE DIAGNOSIS: Sigmoid diverticulosis. PROCEDURE PERFORMED: Diagnostic colonoscopy. PRIMARY SURGEON: Alaina Pérez MD. ANESTHESIA: MAC. INSTRUMENT USED: Olympus colonoscope. EXTENT OF EXAM: To the cecum. PREPARATION: Good. LIMITATIONS: None. INDICATIONS FOR EXAMINATION: The patient is a 63-year-old male who presents with changes in his bowel habits. I explained the need for diagnostic colonoscopy. I explained the procedure; expected perioperative course; and the risks including bleeding, infection, or damage to surrounding structures including perforation. He verbalized understanding and wishes to proceed. PROCEDURE IN DETAIL: The patient was brought into the endoscopy suite and placed in the left lateral decubitus position. A time-out was completed verifying the patient's name, age, date of , allergies, and procedure to be performed. Monitored anesthesia care was induced and continuous oxygen was provided via nasal cannula throughout the procedure. After adequate sedation was achieved, a digital rectal exam was performed. This exam was within normal limits. A well-lubricated colonoscope was inserted into the rectum and advanced under direct visualization to the level of the cecum. The cecum was identified by both visual and anatomic landmarks. A photograph was taken of the cecal cap. The scope was then fully withdrawn while examining the color, texture, anatomy, and integrity of the mucosa from the cecum to the anal canal. The patient was found to have diverticulosis throughout the sigmoid colon. The scope was then brought into the rectum and retroflexed to allow visualization of the anal canal opening. This appeared normal and a photograph was taken. The scope was then straightened out and fully withdrawn. The cecum to anus time was 6 minutes. The patient tolerated the procedure well and was transferred to the PACU in stable condition. ENDOSCOPIC DIAGNOSIS: Sigmoid diverticulosis. RECOMMENDATIONS: The patient and I discussed my procedural findings in the postoperative care area. He will follow up again in 10 years for repeat colonoscopy. LAUREN GARCIA /[id number]
== END 2019-02-05 13:45 | disposition home or self-care (01) ==
LOC: MW.SDS 11:09
PROVIDERS: ATTEND Surgery
DX: K57.30 Diverticulosis of large intestine without perforation or abscess without bleeding (principal); Z79.82 Long term (current) use of aspirin
CPT/HCPCS: 45378; J2001; J2704; J3010; J7120

== ENCOUNTER 2019-10-01 10:30 | Emergency (ER) | payer BC ==
[2019-10-01] MEDS ORDERED: Aspirin 81 MG Tab.Chew PO ONE (10:37)
[2019-10-01] MEDS ORDERED: Diphtheria,Pertussis(Acell),Tetanus Vaccine 0.5 ML Syringe IM ONE (11:00)
--- NOTE | 2019-10-01 11:01 | EDM.PDOC ---
ED HPI GENERAL MEDICAL PROBLEM - General Chief Complaint: Chest Pain Stated Complaint: CHEST PAIN Time Seen by Provider: 10/01/19 10:33 Source of Information: Reports: Patient History Limitations: Reports: No Limitations - History of Present Illness INITIAL COMMENTS - FREE TEXT/NARRATIVE: 64M PMHx AMBROSE presents for chest pain x3 days. First noted after a bike ride on Tuesday and went away after aspirin. Occurred again yesterday after working out and again this morning after walking. Patient denies associated SOB. The pain is in b/l anterior chest radiating to R shoulder. No similar in past. Last cardiac stress test >10yrs ago. FHx of heart problems but no personal history. No TOB use. Overall fairly active/healthy gentleman. chest pain Pain Score (Numeric/FACES): 8 - Related Data Allergies Allergy/AdvReac Type Severity Reaction Status Date / Time No Known Allergies Allergy Verified 10/01/19 10:58 Home Meds: Home Meds Aspirin 81 mg PO DAILY 07/16/18 [History] Past Medical History HEENT History: Reports: None Cardiovascular History: Reports: None Respiratory History: Reports: None Gastrointestinal History: Reports: Pancreatitis Other Gastrointestinal History: hx of pancreatitis last July Genitourinary History: Reports: Renal Calculus Other Genitourinary History: passed stone 7-8 years ago Musculoskeletal History: Reports: Fracture Other Musculoskeletal History: hx of "cracked" heel Neurological History: Reports: None Psychiatric History: Reports: None Endocrine/Metabolic History: Reports: None Hematologic History: Reports: None Immunologic History: Reports: None Oncologic (Cancer) History: Reports: None Dermatologic History: Reports: None - Infectious Disease History Infectious Disease History: Reports: None - Past Surgical History Head Surgeries/Procedures: Reports: None GI Surgical History: Reports: Colonoscopy (10 years ago- normal) Musculoskeletal Surgical History: Reports: ORIF Other Musculoskeletal Surgeries/Procedures:: right foot- bunionectomy and implants to toes (7 screws total and implants) Social & Family History - Caffeine Use Caffeine Use: Reports: Coffee, Soda ED ROS GENERAL - Review of Systems Review Of Systems: Comprehensive ROS is negative, except as noted in HPI. ED EXAM, GENERAL - Physical Exam Exam: See Below Exam Limited By: No Limitations General Appearance: Alert, WD/WN, No Apparent Distress Head: Atraumatic, Normocephalic Respiratory/Chest: No Respiratory Distress, Lungs Clear, Normal Breath Sounds, No Accessory Muscle Use, Chest Non-Tender Cardiovascular: Normal Peripheral Pulses, Regular Rate, Rhythm, No Edema Extremities: Normal Inspection, Other (LE symmetric b/l w/o erythema/warmth/TTP) Neurological: Alert Psychiatric: Normal Affect, Normal Mood Skin Exam: Warm, Dry EKG INTERPRETATION EKG Date: 10/01/19 Time: 11:19 Rhythm: NSR Jarratt: Normal P-Wave: Present QRS: Normal ST-T: Normal QT: Normal Comparison: NA - No Prior EKG Course - Vital Signs Last Recorded V/S: Last Vital Signs Temp 97.0 F 10/01/19 10:59 Pulse 78 10/01/19 11:51 Resp 17 10/01/19 11:51 BP 132/92 H 10/01/19 11:51 Pulse Ox 98 10/01/19 11:51 - Orders/Labs/Meds Orders: Active Orders 24 hr Category Date Time Status EKG Documentation Completion [RC] STAT Care 10/01/19 10:37 Active Vaccines to be Administered [RC] PER UNIT ROUTINE Care 10/01/19 11:00 Active B-TYPE NATRIURETIC PEPTIDE,BNP [CHEM] Stat Lab 10/01/19 10:39 Received PTT,PARTIAL THROMBOPLSTIN TIME [COAG] Q6H Lab 10/01/19 12:00 Ordered PTT,PARTIAL THROMBOPLSTIN TIME [COAG] Q6H Lab 10/01/19 18:00 Ordered PTT,PARTIAL THROMBOPLSTIN TIME [COAG] Q6 Lab 10/02/19 00:00 Ordered PTT,PARTIAL THROMBOPLSTIN TIME [COAG] Q6 Lab 10/02/19 06:00 Ordered PTT,PARTIAL THROMBOPLSTIN TIME [COAG] Q6H Lab 10/02/19 12:00 Ordered PTT,PARTIAL THROMBOPLSTIN TIME [COAG] Q6 Lab 10/02/19 18:00 Ordered PTT,PARTIAL THROMBOPLSTIN TIME [COAG] Q6 Lab 10/03/19 00:00 Ordered PTT,PARTIAL THROMBOPLSTIN TIME [COAG] Stat Lab 10/01/19 11:51 Ordered Heparin Sod,Pork In 0.45% Nacl [Heparin-1/2Ns 25,000 Med 10/01/19 12:00 Ordered Units/500] 25,000 unit in 500 ml IV TITRATE Labs: Laboratory Tests 10/01/19 10/01/19 Range/Units 10:39 10:39 WBC 7.51 (4.0-11.0) K/uL RBC 4.84 (4.50-5.90) M/uL Hgb 15.0 (13.0-17.0) g/dL Hct 45.1 (38.0-50.0) % MCV 93.2 (80.0-98.0) fL MCH 31.0 (27.0-32.0) pg MCHC 33.3 (31.0-37.0) g/dL RDW Std Deviation 43.1 (28.0-62.0) fl RDW Coeff of Max 13 (11.0-15.0) % Plt Count 265 (150-400) K/uL MPV 9.70 (7.40-12.00) fL Neut % (Auto) 44.0 L (48.0-80.0) % Lymph % (Auto) 45.5 H (16.0-40.0) % Coles % (Auto) 8.7 (0.0-15.0) % Eos % (Auto) 1.3 (0.0-7.0) % Baso % (Auto) 0.5 (0.0-1.5) % Neut # (Auto) 3.3 (1.4-5.7) K/uL Lymph # (Auto) 3.4 H (0.6-2.4) K/uL Coles # (Auto) 0.7 (0.0-0.8) K/uL Eos # (Auto) 0.1 (0.0-0.7) K/uL Baso # (Auto) 0.0 (0.0-0.1) K/uL Nucleated RBC % 0.0 /100WBC Nucleated RBCs # 0 K/uL Sodium 138 (136-148) mmol/L Potassium 3.6 (3.5-5.1) mmol/L Chloride 104 (98-107) mmol/L Carbon Dioxide 23.4 (21.0-32.0) mmol/L BUN 20 H (7.0-18.0) mg/dL Creatinine 1.2 (0.8-1.3) mg/dL Est Cr Clr Drug Dosing 63.83 mL/min Estimated GFR (MDRD) > 60.0 ml/min Glucose 174 H (74-106) mg/dL Calcium 8.4 L (8.5-10.1) mg/dL Magnesium 2.0 (1.8-2.4) mg/dL Total Bilirubin 0.6 (0.2-1.0) mg/dL AST 23 (15-37) IU/L ALT 39 (14-63) IU/L Alkaline Phosphatase 82 (46-116) U/L Troponin I 0.138 H* (0.000-0.056) ng/mL Total Protein 7.0 (6.4-8.2) g/dL Albumin 3.9 (3.4-5.0) g/dL Globulin 3.1 (2.6-4.0) g/dL Albumin/Globulin Ratio 1.3 (0.9-1.6) Meds: Medications Discontinued Medications Generic Name Dose Route Start Last Admin Trade Name Freq PRN Reason Stop Dose Admin Aspirin 324 mg 10/01/19 10:37 10/01/19 10:55 Aspirin PO 10/01/19 10:38 324 mg ONETIME ONE Administration Diphtheria/Tetanus/Acell Pertussis 0.5 ml 10/01/19 11:00 Adacel IM 10/01/19 11:01 .ONCE ONE Enoxaparin Sodium 90 mg 10/01/19 11:32 10/01/19 11:48 Lovenox 1 mg/kg (90 mg) 10/01/19 11:33 90 mg SUBCUT Administration ONETIME ONE Metoprolol Tartrate 25 mg 10/01/19 11:49 Lopressor PO 10/01/19 11:50 ONETIME ONE Rosuvastatin Calcium 10 mg 10/01/19 11:49 Crestor PO 10/01/19 11:50 ONETIME ONE - Re-Assessments/Exams Free Text/Narrative Re-Assessment/Exam: 10/01/19 11:21 Exertional CP concerning for cardiac ischemia. 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 EKG non-ischemic without changes from prior. WIll get labs/CXR, and dispo accordingly. 10/01/19 11:52 Labs remarkable for elevated troponin; spoke with [facility] hospitalist Dr. Paul who agrees to accept patient, requests Lopressor, Crestor, and heparin drip started in ED prior to transport. Departure - Departure Time of Disposition: 11:53 Disposition: DC/Tfer to Acute Hospital 02 Reason for Transfer *Q: Other (needs tripoler) Condition: Good Clinical Impression: Acute coronary syndrome Referrals: Galileo Oneil MD [Primary Care Provider] - Forms: ED Department Discharge Sepsis Event Note (ED) - Focused Exam Vital Signs: Vital Signs Temp Pulse Resp BP Pulse Ox 10/01/19 11:51 78 17 132/92 H 98 10/01/19 11:06 157/94 H 10/01/19 10:59 97.0 F 70 18 140/86 99 - My Orders Last 24 Hours: My Active Orders 10/01/19 10:37 EKG Documentation Completion [RC] STAT 10/01/19 10:39 B-TYPE NATRIURETIC PEPTIDE,BNP [CHEM] Stat 10/01/19 11:00 Vaccines to be Administered [RC] PER UNIT ROUTINE 10/01/19 11:51 PTT,PARTIAL THROMBOPLSTIN TIME [COAG] Stat 10/01/19 12:00 PTT,PARTIAL THROMBOPLSTIN TIME [COAG] Q6H Heparin Sod,Pork In 0.45% Nacl [Heparin-1/2Ns 25,000 Units/500] 25,000 unit in 500 ml IV TITRATE 10/01/19 18:00 PTT,PARTIAL THROMBOPLSTIN TIME [COAG] Q6H 10/02/19 00:00 PTT,PARTIAL THROMBOPLSTIN TIME [COAG] Q6H 10/02/19 06:00 PTT,PARTIAL THROMBOPLSTIN TIME [COAG] Q6H 10/02/19 12:00 PTT,PARTIAL THROMBOPLSTIN TIME [COAG] Q6H 10/02/19 18:00 PTT,PARTIAL THROMBOPLSTIN TIME [COAG] Q6H 10/03/19 00:00 PTT,PARTIAL THROMBOPLSTIN TIME [COAG] Q6H - Assessment/Plan Last 24 Hours: My Active Orders 10/01/19 10:37 EKG Documentation Completion [RC] STAT 10/01/19 10:39 B-TYPE NATRIURETIC PEPTIDE,BNP [CHEM] Stat 10/01/19 11:00 Vaccines to be Administered [RC] PER UNIT ROUTINE 10/01/19 11:51 PTT,PARTIAL THROMBOPLSTIN TIME [COAG] Stat 10/01/19 12:00 PTT,PARTIAL THROMBOPLSTIN TIME [COAG] Q6H Heparin Sod,Pork In 0.45% Nacl [Heparin-1/2Ns 25,000 Units/500] 25,000 unit in 500 ml IV TITRATE 10/01/19 18:00 PTT,PARTIAL THROMBOPLSTIN TIME [COAG] Q6H 10/02/19 00:00 PTT,PARTIAL THROMBOPLSTIN TIME [COAG] Q6H 10/02/19 06:00 PTT,PARTIAL THROMBOPLSTIN TIME [COAG] Q6H 10/02/19 12:00 PTT,PARTIAL THROMBOPLSTIN TIME [COAG] Q6H 10/02/19 18:00 PTT,PARTIAL THROMBOPLSTIN TIME [COAG] Q6H 10/03/19 00:00 PTT,PARTIAL THROMBOPLSTIN TIME [COAG] Q6H
[2019-10-01 11:18] LABS: BLOOD UREA NITROGEN,BUN 20 mg/dL (7.0-18.0); CARBON DIOXIDE,CO2 23.4 mmol/L (21.0-32.0); CHLORIDE,CL 104 mmol/L (98-107); GLUCOSE RANDOM 174 mg/dL (74-106); POTASSIUM,K 3.6 mmol/L (3.5-5.1); SODIUM,NA 138 mmol/L (136-148)
--- NOTE | 2019-10-01 11:24 | CR ---
Chest: Portable view of the chest was obtained. Comparison: Prior chest x-ray of 02/15/18. Slight scarring noted within the left lung base which is stable. Lungs show no acute parenchymal change. Heart size and mediastinum are normal. Bony structures are grossly intact. Impression: 1. Slight scarring within the left lung base. 2. Nothing acute is appreciated. Diagnostic code #2 This report was dictated in MDT
[2019-10-01] MEDS ORDERED: Enoxaparin 100 MG/1 ML Syringe SUBCUT ONE (11:32)
[2019-10-01] MEDS ORDERED: Rosuvastatin 10 MG Tab PO ONE ×2 (11:49→12:00)
[2019-10-01] MEDS ORDERED: Metoprolol Tartrate 25 MG Tab PO ONE (11:49)
[2019-10-01] MEDS ORDERED: Heparin Sod,Pork In 0.45% Nacl 25,000 UNIT/500 ML IV.SOLN IV SCH (12:00)
[2019-10-01] MEDS ORDERED: Morphine 4 MG/ML Syringe IVPUSH ONE (12:31)
== END 2019-10-01 13:06 ==
LOC: MW.ED 10:30
DX: I24.9 Acute ischemic heart disease, unspecified (principal); Z79.82 Long term (current) use of aspirin
CPT/HCPCS: 36415; 71045; 80053; 83735; 83880; 84484; 85025; 85730; 93005; 96372; 96374; 99285; A9270; J1650; J2270; 99284